=== PATIENT | male | born 1960 | race Caucasian/White ===

== ENCOUNTER 2019-06-24 07:47 | Day surgery (SDC) | payer BC ==
[~2019-06-24] VITALS: Ht 182.9 cm; Wt 137.9 kg
[~2019-06-24 07:47] MED LIST: ACETAMINOPHEN 325 MG TAB PO PRN; BALANCED SALT IRRIGATION SOLUTION 500ML BAG (FOR OR EYE MACHINE) As Ordered ONE; CEFUROXIME 1MG/0.1ML INTRACAMERAL INJ As Ordered ONE; CORG20TA2 PO; CYCLOPENTOLATE 2% OPHTH SOLN 2ML BTL OS ONE; D 1010002 PO; FARX1TAB3 PO; FISH1000 PO; GLIP10TA18 PO; HEALON DUET PRO(HEALON 10MG/ML 0.55ML & HEALON ENDOCOAT 30MG/ML 0.85ML) As Ordered ONE; HYDR25TAB PO; JANU50TA8 PO; LIDOCAINE 1% SDV 5 ML VIAL As Ordered ONE; LIDOCAINE 3.5 % 1ML OPHTH TOPICAL GEL OU ONE; MIDAZOLAM INJ 2 MG/2 ML VIAL (J2250) As Ordered ONE; OFLOXACIN 0.3 % (OCUFLOX) OPTH SOL 5ML OS ONE; OMEP-221 PO; PHENYLEPHRINE 2.5% OPHTH SOL 2ML OS ONE; PHENYLEPHRINE HCL 10 % OPHTH. SOL 5ML OS PRN; POTA1TAB23 PO; POVIDONE-IODINE 5% OPHTH PREP SOL 30ML As Ordered ONE; PROPARACAINE 0.5% OPHTH SOL 15ML OS PRN; SIMV20TA2 PO; TROPICAMIDE 1% OPHTH SOLN 2ML OS ONE; fentaNYL 100 MCG/2 ML INJECTION (J3010) As Ordered ONE
[2019-06-24 09:58] VITALS: BP 145/79
[2019-06-24] MEDS ORDERED: TRIMETHOBENZAMIDE 300 MG CAP PO PRN (10:00)
[2019-06-24] MEDS ORDERED: AcetaZOLAMIDE 500 MG ER CAP PO ONE (10:00)
[2019-06-24] MEDS ORDERED: KETOROLAC 0.5% OPHTH SOLN OS ONE (10:00)
--- NOTE | 2019-06-24 10:58 | RO ---
DATE OF PROCEDURE: 06/24/2019 PREOPERATIVE DIAGNOSIS: Age-related nuclear cataract and posterior subcapsular cataract left eye. POSTOPERATIVE DIAGNOSIS: Age-related nuclear cataract and posterior subcapsular cataract left eye. PROCEDURE PERFORMED: Femtosecond cataract extraction with posterior chamber intraocular lens implantation and use Optiwave Refractive Analysis (ORA). Lens used was an [id number], 12.0 diopter. SURGEON: Isatu Brown MD [employer]: ANESTHESIA: Topical with sedation. DESCRIPTION OF PROCEDURE: Patient was prepped and draped in usual fashion. A lid speculum was placed between the lids. The eye was fixated. A stab incision was made into the anterior chamber. 1% nonpreserved lidocaine was instilled. Then viscoelastic was instilled. The main incision was then opened with the incision devulcanizer charger, and the anterior capsulorrhexis was removed, was performed by the laser. The lens was then rocked to remove any gas from behind it, and then it was freely movable in the capsular bag. The phacoemulsification unit was used to groove the nucleus in two meridians. The nucleus was cracked into four quadrants. Each quadrant was removed with the phacoemulsification unit. Any remaining cortex was removed with the irrigation and aspiration (I and A) unit. The capsular bag was refilled with viscoelastic, and then the intraocular pressure measured and found to be adequate for ORA. The ORA was lowered into place, focused on the apex of the cornea, and aligned to the patient. Readings were made, and an appropriate intraocular lens was chosen from the data generated by the ORA. The lens was then injected into the eye with its wood finisher and into the capsular bag. It was in great position. Any remaining viscoelastic was removed with the I and A unit. The wound was then hydrated, and balanced salt solution (BSS) and cefuroxime were instilled. Patient tolerated this procedure well and went to recovery room in stable condition.
== END 2019-06-24 10:10 | disposition home or self-care (01) ==
LOC: M SDC 07:47
PROVIDERS: ATTEND Ophthalmology
DX: H25.12 Age-related nuclear cataract, left eye (principal); E11.9 Type 2 diabetes mellitus without complications; I10 Essential (primary) hypertension; K21.9 Gastro-esophageal reflux disease without esophagitis; G47.30 Sleep apnea, unspecified; Z79.899 Other long term (current) drug therapy
CPT/HCPCS: 66984; 92015; J2250; J3010

== ENCOUNTER → 2020-05-20 | Outpatient (CLI) | payer OTHER ==
[~2020-05-20] MED LIST changes: -ACETAMINOPHEN 325 MG TAB PO PRN; -BALANCED SALT IRRIGATION SOLUTION 500ML BAG (FOR OR EYE MACHINE) As Ordered ONE; -CEFUROXIME 1MG/0.1ML INTRACAMERAL INJ As Ordered ONE; -CYCLOPENTOLATE 2% OPHTH SOLN 2ML BTL OS ONE; -HEALON DUET PRO(HEALON 10MG/ML 0.55ML & HEALON ENDOCOAT 30MG/ML 0.85ML) As Ordered ONE; -LIDOCAINE 1% SDV 5 ML VIAL As Ordered ONE; -LIDOCAINE 3.5 % 1ML OPHTH TOPICAL GEL OU ONE; -MIDAZOLAM INJ 2 MG/2 ML VIAL (J2250) As Ordered ONE; -OFLOXACIN 0.3 % (OCUFLOX) OPTH SOL 5ML OS ONE; -PHENYLEPHRINE 2.5% OPHTH SOL 2ML OS ONE; -PHENYLEPHRINE HCL 10 % OPHTH. SOL 5ML OS PRN; -POVIDONE-IODINE 5% OPHTH PREP SOL 30ML As Ordered ONE; -PROPARACAINE 0.5% OPHTH SOL 15ML OS PRN; -SIMV20TA2 PO; +SIMV20TA22 PO; -TROPICAMIDE 1% OPHTH SOLN 2ML OS ONE; -fentaNYL 100 MCG/2 ML INJECTION (J3010) As Ordered ONE
--- NOTE | 2020-05-21 08:19 | REP ---
REASON FOR EXAM: Pain. No recent trauma. Patient sustained an injury 01/27/2020. Grade 3 signal change is seen in the periphery of the posterior horn medial meniscus. The anterior horn is within normal limits. There is grade 3 signal change seen in the anterior horn of the lateral meniscus. The posterior horn is within normal limits. The anterior and posterior cruciate ligaments are intact. The quadriceps and patellar tendons are intact. The medial and lateral collateral ligaments are intact. T2 hypersignal is seen surrounding the medial collateral ligament and there is a gap between the medial meniscus and medial collateral ligament with T2 hypersignal seen delaying that gap. The medial and lateral patellar retinacula are intact. There is a joint effusion. There is advanced chondral thinning and irregularity seen involving the patellofemoral groove with subchondral T2 hypersignal foci seen in the anterior lateral femoral condyle and lateral patellar facet. More mild to moderate cartilaginous thinning and irregularity is seen involving the medial and lateral compartments. There is no Glass's cyst. IMPRESSION: 1. There is a peripheral tear of the posterior horn of the medial meniscus. 2. There is a tear involving the anterior horn of the lateral meniscus. 3. There is medial meniscal capsular separation and mild medial collateral ligamentous sprain . 4. Chronic changes with tricompartmental chondromalacia as described above and particularly affecting the patellofemoral joint where there is subchondral edema and early cyst formation. There is mild bilateral patellar subluxation. There is slight tricompartmental marginal osteophytosis. There is a joint effusion. 5. Other findings as described above. Electronically Signed by Nathanael Reese DO 05/30/2020 07:43 A
== END ==
LOC: M RAD 14:00
PROVIDERS: ATTEND Physician Assistant
DX: M23.341 Other meniscus derangements, anterior horn of lateral meniscus, right knee (principal); M94.261 Chondromalacia, right knee; M25.461 Effusion, right knee

== ENCOUNTER → 2021-12-13 | Outpatient (CLI) | payer OTHER ==
[~2021-12-13] MED LIST changes: +HYDR-3490 PO; -HYDR25TAB PO; -OMEP-221 PO; +OMEP40CA5 PO
== END ==
LOC: M PLAIMG 14:41
PROVIDERS: ATTEND Physician Assistant
DX: M50.30 Other cervical disc degeneration, unspecified cervical region (principal)

== ENCOUNTER → 2021-12-25 | Outpatient (CLI) | payer OTHER | LOC: M RAD 16:57 | PROVIDERS: ATTEND Physician Assistant | DX: M54.2 Cervicalgia (principal); M43.12 Spondylolisthesis, cervical region; M48.03 Spinal stenosis, cervicothoracic region ==